=== PATIENT | female | born 1990 | race Caucasian/White ===

== ENCOUNTER 2020-01-04 13:46 | Outpatient (CLI) | payer OTHER | END 2020-01-04 23:59 | disposition home or self-care (01) | LOC: CFH 13:46 | PROVIDERS: ATTEND Physician Assistant | DX: N63.13 Unspecified lump in the right breast, lower outer quadrant (principal); N63.23 Unspecified lump in the left breast, lower outer quadrant | CPT/HCPCS: 76642; 77066; G0279 ==